=== PATIENT | male | born 1960 | race Caucasian/White ===

== ENCOUNTER → 2019-11-26 | Outpatient (CLI) | payer BC | END | disposition home or self-care (01) | LOC: LABPAT 13:53 | PROVIDERS: ATTEND Orthopaedic Surgery | DX: Z01.812 Encounter for preprocedural laboratory examination (principal) | CPT/HCPCS: 87070 ==

== ENCOUNTER → 2019-11-30 | Outpatient (CLI) | payer BC | END | disposition home or self-care (01) | LOC: LABPAT 07:55 | PROVIDERS: ATTEND Orthopaedic Surgery | DX: Z53.9 Procedure and treatment not carried out, unspecified reason (principal) ==

== ENCOUNTER → 2019-11-30 | Outpatient (CLI) | payer BC ==
--- NOTE | 2019-11-30 08:25 | CT ---
EXAMINATION TYPE: CT chest wo con DATE OF EXAM: 11/30/2019 COMPARISON: None HISTORY: Hemoptysis CT DLP: 277.40 mGycm. Automated Exposure Control for Dose Reduction was Utilized. TECHNIQUE: CT scan of the thorax is performed without IV contrast. FINDINGS: LUNGS: The lungs are grossly clear, there is no concerning parenchymal mass or nodule identified. T here is no pleural effusion or pneumothorax seen. The tracheobronchial tree demonstrates a 1 mm dens ity along the posterior margin the right mainstem bronchus which could be related to retained secreti ons. Linear changes involving the lung bases most typical of atelectasis. Apical pleural-based thicke nasrin noted. Area of subsegmental consolidation along the anterior segment right upper lobe medial mar gin. Mild hyperinflation. MEDIASTINUM: Lack of IV contrast is noted to limit evaluation for mediastinal and especially hilar ad enopathy. There are no definitive greater than 1 cm hilar or mediastinal lymph nodes. No cardiomega ly or pericardial effusion is seen. Single vessel coronary artery calcification. OTHER: Hypertrophic and degenerative changes spine.. IMPRESSION: 1. There is an area of low density along the medial margin anterior segment right upper lobe axial im age 51 measuring 3.9 cm. May lie within the mediastinum rather than the lung. Recommend post contrast imaging to assess for mass. 2. There is a tiny 1 to 2 mm density along the posterior margin the trachea and right mainstem bronch us most likely related to retained secretions could be followed in 3-6 month basis. It is too small t o characterize. 3. Correlate for mild COPD
== END | disposition home or self-care (01) ==
LOC: RADCTMAIN 07:39
PROVIDERS: ATTEND Family Medicine
DX: J98.4 Other disorders of lung (principal)
CPT/HCPCS: 71250

== ENCOUNTER → 2019-12-02 | Outpatient (CLI) | payer BC ==
[2019-12-02 13:16] LABS: Appearance,Urine Clear (Clear); Bilirubin,Urine Negative (Negative); Blood,Urine Negative (Negative); Color,Urine Light Yellow; Glucose,Urine (UA) Negative (Negative); Ketones,Urine Negative (Negative); Leukocyte Esterase,Urine Negative (Negative); Nitrite,Urine Negative (Negative); PH, Urine 6.5 (5.0-8.0); Protein,Urine Negative (Negative); Specific Gravity,Urine 1.004 (1.001-1.035); Urobilinogen,Urine <2.0 mg/dL (<2.0)
== END | disposition home or self-care (01) ==
LOC: LABPAT 12:38
PROVIDERS: ATTEND Orthopaedic Surgery
DX: Z01.818 Encounter for other preprocedural examination (principal); Z01.812 Encounter for preprocedural laboratory examination; M25.551 Pain in right hip
CPT/HCPCS: 81003; 85730; 86850; 86900; 86901

== ENCOUNTER → 2019-12-06 | Outpatient (CLI) | payer BC ==
--- NOTE | 2019-12-06 08:51 | CT ---
EXAMINATION TYPE: CT chest w con DATE OF EXAM: 12/06/2019 COMPARISON: Prior chest CT 6 days ago. HISTORY: Abnormal lung field CT DLP: 262.5 mGycm. Automated Exposure Control for Dose Reduction was Utilized. TECHNIQUE: CT scan of the thorax is performed following with IV Contrast, patient injected with 100 mL of Isovue 300. FINDINGS: LUNGS: Mild to moderate underlying emphysematous change is redemonstrated with stable mild biapical pleural/ parenchymal scarring. Chronic consolidation and/or atelectasis along right heart border is fairly low density could reflect fluid. It is unchanged in size and appearance from prior study measuring rough ly 4.0 x 1.6 cm image 50. I favor mediastinal location and benign pericardial fluid or cyst. Focal pl eural fluid or chronic consolidation/atelectasis less likely. Either way benign etiologies almost cer tain. Stable linear scarring posteriorly in the left lower lobe near diaphragm axial image 55 for ref erence. Dependent density right mainstem bronchus on prior study not clearly seen consistent with res olution of retained secretions. Tracheobronchial tree patent currently. No new consolidation or suspi cious masses. Some new nodular posterior atelectatic changes in the both lower lobes on current study . MEDIASTINUM: There are no greater than 1 cm hilar or mediastinal lymph nodes. No cardiomegaly or pe ricardial effusion is seen. OTHER: Moderate multilevel spurring in the thoracic spine. IMPRESSION: Area of concern on recent CT shows no suspicious enhancement it is low density favoring f luid etiology, strongly suspect mediastinal location and/or benign pericardial cyst. Resolution of ti ny 1 to 2 mm density posterior margin right mainstem bronchus. Background mild to moderate chronic em physematous change without new suspicious acute pulmonary process.
== END | disposition home or self-care (01) ==
LOC: RADCTMAIN 06:50
PROVIDERS: ATTEND Family Medicine
DX: J43.9 Emphysema, unspecified (principal); J98.09 Other diseases of bronchus, not elsewhere classified
CPT/HCPCS: 71260; Q9967

== ENCOUNTER 2019-12-13 11:29 | Day surgery (SDC) | payer BC ==
[2019-12-09 11:54] VITALS: BMI 25.1
[~2019-12-13 11:29] MED LIST: ACETAMINOPHEN TAB 500 MG TAB PO ONE; GABAPENTIN 300 MG CAP PO ONE; MELOXICAM 7.5 MG TAB PO ONE; TRANEXAMIC ACID 1,000 MG in SODIUM CHLORIDE 0.9% 100 ML IVPB ONE
[2019-12-13] MEDS ORDERED: LACTATED RINGERS 1,000 ML IV ONE ×2 (11:59→14:09)
[2019-12-13] MEDS ORDERED: DEXAMETHASONE SOD PHOSPHATE 10 MG/ML 1 ML VIAL IV ONE (12:01)
[2019-12-13] MEDS ORDERED: ONDANSETRON 4 MG/2 ML VIAL IVP ONE (12:01)
[2019-12-13] MEDS ORDERED: PROPOFOL 10 MG/ML 20 ML VIAL IV ONE (13:17)
[2019-12-13] MEDS ORDERED: HEPARIN SODIUM,PORCINE 10,000 UNIT/ML 1 ML VIAL ONE (13:17)
[2019-12-13] MEDS ORDERED: SODIUM CHLORIDE 0.9% IRRIG 1,000 ML BTL IRRIGATION ONE (13:17)
[2019-12-13] MEDS ORDERED: SODIUM CHLORIDE 0.9% 100 ML BAG ONE (13:17)
[2019-12-13] MEDS ORDERED: MIDAZOLAM 2 MG/2 ML VIAL ONE (13:17)
[2019-12-13] MEDS ORDERED: ePHEDrine SULFATE/0.9% NACL/PF 50 MG/5 ML SYRINGE IV ONE (13:17)
[2019-12-13] MEDS ORDERED: fentaNYL (PF) 50 MCG/ML 2 ML AMP ONE (13:17)
[2019-12-13] MEDS ORDERED: TRANEXAMIC ACID 1,000 MG/10 ML VIAL ONE (13:17)
[2019-12-13] MEDS ORDERED: ceFAZolin 3,000 MG in SODIUM CHLORIDE 0.9% IRRIGATIO 3,000 ML IRRIGATION ONE (13:21)
[2019-12-13] MEDS: ROPIVACAINE 246.25 MG, EPINEPHrine 0.5 MG, KETOROLAC 30 MG, cloNIDine HCL/PF 80 MCG, WA... MISCELLANE ONE ×10 (13:46→14:34)
--- NOTE | 2019-12-13 14:52 | XR ---
EXAMINATION TYPE: XR Hip Limited RT, FL guidance operating room DATE OF EXAM: 12/13/2019 CLINICAL HISTORY: Fluoroscopic documentation during right hip arthroplasty. TECHNIQUE: Fluoroscopy. COMPARISON: None. FINDINGS: Fluoroscopic guidance was provided during procedure performed by Dr. Ley. A total of 57 seconds of fluoroscopic time was utilized during the procedure and 2 spot images were acquired dur ing right hip arthroplasty. IMPRESSION: As Above.
--- NOTE | 2019-12-13 14:58 | P.OP ---
Date of Procedure: 12/13/19 Preoperative Diagnosis: Severe osteoarthritis right hip Postoperative Diagnosis: Severe osteoarthritis right hip Procedure(s) Performed: Right total hip arthroplasty with a direct anterior approach Implants: Ruth [employer] nephew Polarstem size 7 standard [employer]hew R3, 3 hole acetabular shell, 56 mm [employer] reflection 6.5 mm cancellus screw, 20 mm 2 [employer] R3, XLPE 20 acetabular liner [employer]hew Oxinium femoral head 36 m, +4 All components were press-fit. The articulation is Oxinium on polyethylene. Anesthesia: spinal Surgeon: George Ley Construction Equipment Mechanic Helper #1: Caridad Martinez Estimated Blood Loss (ml): 400 (130 mL returned with Cell Saver) Pathology: other (Femoral head) Condition: stable Disposition: PACU Indications for Procedure: After failure of conservative treatment we discussed the surgical and nonsurgical treatment options at length. Patient wishes to proceed with a total hip arthroplasty with a direct anterior approach. Complications specific to this procedure were discussed at length, including but not limited to infection, leg length discrepancy, dislocation, and nerve injury. Patient is aware of all these complications and informed consent was obtained Operative Findings: The operative findings are consistent with severe osteoarthritis of the right hip Description of Procedure: Patient was seen and evaluated in the preoperative area, consent was reviewed, and the surgical site was marked with a skin marker. Patient was then brought to the operating room and given prophylactic antibiotics intravenously. 1 g of Tranexamic acid was also given. A spinal anesthetic was administered by the anesthesia department. The patient was then placed on the [place] table with the bony prominences well-padded. The hip area was then prepped and draped in usual sterile fashion. A universal timeout was then performed, which confirmed the patient's name, surgical site, ALLERGIES, and procedure being performed. Next the incision site was located at 1 cm distal and 1 cm lateral to the anterior superior iliac spine. The skin and subcutaneous tissues were sharply incised. Incision was carefully dissected down to the fascia overlying the tensor fascia sonia muscle. This fascia was then incised in line with the incision. Next, using blunt finger dissection, the tensor fascia sonia muscle was dissected off its investing fascia. The muscle was then carefully retracted laterally with a cobra retractor over the lateral neck of the femur. Next, the circumflex vessels were identified and cauterized using the AquaMantis device. The anterior hip capsule was then exposed. The capsule was then opened and an inverted T fashion. Cobra retractors were then placed intracapsularly. The proximal femur was then vis ualized. The femoral neck was then osteotomized appropriate level above the lesser trochanter. Small amount of traction was placed with the [place] table. A small wedge of bone was then removed from the remaining femoral head. Next, using a corkscrew femoral head was easily removed from the acetabulum. On gross visual inspection, the femoral head had complete loss of articular cartilage in multi ple periarticular osteophytes. Attention was then turned to the acetabulum. the acetabulum was exposed and any remaining labrum was excised. Sequential reaming of the acetabulum was performed using fluoroscopic guidance. When the appropriate size was reached, a trial was then placed. The position and fit of the trial was checked with fluoroscopy. The trial was then removed. Then, using fluoroscopic guidance, the final implant was impacted at 20 of anteversion and 40 of abduction, and fully seated in the acetabulum. 2 screws were then placed in the acetabulum. Again fluoroscopy was used to check position of the screws. Next, the liner was then impacted, with a 20 elevated liner located in the anterior superior quadrant. Component locking was confirmed. Attention was then directed to the femur. With the aid of the [place] table, the femur was externally rotated to approximately 130, extended, and abducted under the opposite leg. A side hook was then placed under the proximal femur, and the side hook elevator was used to elevate the proximal femur. Retractors were then placed. A capsular release was performed, as well as a release of the conjoined tendon, which afforded excellent visualization of the proximal femur. Next, a box osteotome was used to lateralize the proximal femur. A sole stitcher hand was then used to locate the femoral canal. Sequential broaching was then performed with appropriate size which afforded excellent fixation in the proximal femur. A trial was then placed with appropriate head and neck, and the hip was gently reduced with the aid of the [place] table. Fluoroscopy was then used to check position of the components, as well as to ensure equal leg lengths. The hip was then gently dislocated and the trials were then removed. Final implants were then impacted and the hip was again reduced. Final fluoroscopic x-rays confirmed that the components were in anatomic position, as well as equal leg lengths. The hip was also taken through range of motion, and found to be stable. The hip was then copiously irrigated with antibiotic solution with pulsatile lavage. The hip was then irrigated with Irrisept solution. The soft tissues were then injected with a ropivacaine solution, which consisted of 246.25 mg of ropivacaine, 0.5 mg of epinephrine, 30 mg of Toradol, 80 g of clonidine, and 48.45 mL of sterile water, for a total of 100 mL of fluid injected. A second dose of 1 g of Tranexamic acid was also given. the fascia was then closed with 2-0 strata fix suture. The subcutaneous tissue was closed with 3-0 Vicryl. The subcuticular tissue was closed with 3-0 strata fix suture. The skin was then closed with Dermabond glue and a sterile silver dressing. The patient was then transferred to the recovery room in stable condi tion. The library media assistant MEHUL Mac was required due to the complexity of surgery, and the need for skilled surgical specialist for positioning, draping, exposure, retraction, and closure of the wound.
[2019-12-13] MEDS ORDERED: NALOXONE 0.4 MG/ML 1 ML VIAL IV PRN ×2 (15:15→15:18)
[2019-12-13] MEDS ORDERED: HYDROcodone/APAP 7.5-325MG 1 EACH TAB PO PRN ×2 (15:18)
[2019-12-13] MEDS ORDERED: MAGNESIUM HYDROXIDE 2,400 MG/10 ML CUP PO PRN (15:18)
[2019-12-13] MEDS ORDERED: HYDROmorphone 1 MG/ML 1 ML SYRINGE IVP PRN (15:18)
[2019-12-13] MEDS ORDERED: ACETAMINOPHEN TAB 325 MG TAB PO PRN (15:18)
[2019-12-13] MEDS ORDERED: HYDROmorphone 0.5 MG/0.5 ML SYRINGE IVP PRN ×2 (15:18)
[2019-12-13] MEDS ORDERED: ONDANSETRON 4 MG/2 ML VIAL IVP PRN (15:18)
[2019-12-13] MEDS: LACTATED RINGERS 1,000 ML IV SCH ×2 (15:34→22:06)
--- NOTE | 2019-12-13 15:51 | XR ---
EXAMINATION TYPE: XR Hip Limited RT DATE OF EXAM: 12/13/2019 CLINICAL HISTORY: Right hip pain and osteoarthritis. TECHNIQUE: Single AP portable view of right hip is obtained immediately postoperatively. COMPARISON: None. FINDINGS: Metallic hardware from right hip arthroplasty is seen and appears satisfactory in alignment and position. There is evidence of recent surgery with subcutaneous gas noted laterally. IMPRESSION: Metallic hardware from right hip arthroplasty is satisfactory in position.
[2019-12-13] MEDS: ASPIRIN 325 MG TAB PO SCH (19:58)
[2019-12-13] MEDS ORDERED: SENNOSIDES-DOCUSATE SODIUM 1 EACH TAB PO SCH (21:00)
[2019-12-14 07:31] LABS: Basophils # (A) 0.1 k/uL (0-0.2); Basophils % (A) 1 %; Eosinophils # (A) 0.1 k/uL (0-0.7); Eosinophils % (A) 1 %; HCT 36.6 % (39.0-53.0); Lymphocytes # (A) 1.5 k/uL (1.0-4.8); Lymphocytes % (A) 15 %; MCH 31.3 pg (25.0-35.0); MCHC 32.3 g/dL (31.0-37.0); MCV 96.6 fL (80.0-100.0); Mean Platelet Volume 7.5; Monocytes # (A) 0.7 k/uL (0-1.0); Monocytes % (A) 6 %; Neutrophils # (A) 7.8 k/uL (1.3-7.7); Neutrophils % (A) 76 %; Platelet Count 156 k/uL (150-450); RBC 3.79 m/uL (4.30-5.90); RDW 12.1 % (11.5-15.5); WBC 10.3 k/uL (3.8-10.6)
[2019-12-14 07:39] LABS: HGB 11.8 gm/dL (13.0-17.5)
[2019-12-14 07:51] VITALS: BP 113/64; PULSE 84; RESP 15; TEMP 98.1
[2019-12-14] MEDS: ASPIRIN 325 MG TAB PO SCH (08:47)
[2019-12-14] MEDS ORDERED: MELOXICAM 7.5 MG TAB PO SCH (09:00)
--- NOTE | 2019-12-14 11:31 | P.DS ---
Providers Expected date of discharge: 12/14/19 Attending physician: George Ley Consults: 12/13/19 15:18 Consult Physician Routine Consulting Provider: Donovan Burnette Consult Reason/Comments: Medical management Do you want consulting provider notified?: Yes Primary care physician: Donovan Burnette - Discharge Diagnosis(es) (1) Osteoarthritis of right hip Current Visit: Yes Status: Acute (2) Status post total hip replacement, right Current Visit: Yes Status: Acute Hospital Course: This is a 59-year-old male with known history of degenerative arthritis of the right hip. The patient presents for evaluation. After discussion and consideration patient elects to proceed with total hip arthroplasty. The patient is seen preoperatively by his primary care physician and cleared for surgery. Patient is [facility] to [facility] on 12/13/2019 for total hip arthroplasty. The procedures performed without complication or sequelae. The patient is doing well postoperatively. Labs and vital signs are stable on day of discharge. On day of discharge patient's hip incision is healing well. There is minimal erythema. There is no drainage noted at this time. There is minimal soft tissue swelling to the hip and thigh. Patient has full foot and ankle motion without difficulty or pain. Neurovascular status to the right lower extremity is intact. Patient is discharged to home in good condition. Patient Condition at Discharge: Good Plan - Discharge Summary Discharge Rx Participant: No New Discharge Prescriptions: New Aspirin 325 mg PO BID #60 tab Meloxicam [Mobic] 1 - 2 tab PO DAILY PRN #30 tab PRN Reason: Pain HYDROcodone/APAP 7.5-325MG [H[place]ett 7.5-325] 1 - 2 tab PO Q4-6H PRN #50 tab PRN Reason: Pain Sennosides-Docusate Sodium [Senokot-S] 1 tab PO BID #60 tablet No Action Nicotine Polacrilex [Nicotine Gum] 4 mg BUCCAL RT-Q2H Discharge Medication List Nicotine Polacrilex [Nicotine Gum] 4 mg BUCCAL RT-Q2H 12/13/19 [History] Aspirin 325 mg PO BID #60 tab 12/14/19 [Rx] HYDROcodone/APAP 7.5-325MG [[place]ett 7.5-325] 1 - 2 tab PO Q4-6H PRN #50 tab 12/14/19 [Rx] Meloxicam [Mobic] 1 - 2 tab PO DAILY PRN #30 tab 12/14/19 [Rx] Sennosides-Docusate Sodium [Senokot-S] 1 tab PO BID #60 tablet 12/14/19 [Rx] Follow up Appointment(s)/Referral(s): George Ley DO [Doctor of Osteopathic Medicine] - 2 Weeks Activity/Diet/Wound Care/Special Instructions: May bear wt as tolerated w walker. May shower w dressing intact. Leave dressing intact for 10 days. Patient given Rx to start outpatient Physical Therapy. Patient to call and set up first visit with their preferred outpatient Physical Therapist, with an appointment by . Discharge Disposition: HOME SELF-CARE
[2019-12-14] MEDS: LACTATED RINGERS 1,000 ML IV SCH (12:32)
[2019-12-14] MEDS ORDERED: NICOTINE POLACRILEX 2 MG GUM BUCCAL PRN (13:00)
[2019-12-14] MEDS ORDERED: TEMAZEPAM 15 MG CAP PO PRN (22:00)
== END 2019-12-14 13:30 | disposition home or self-care (01) ==
LOC: OR 11:29 → EDSTATUS 15:00 → 4SSUR 15:26 → OR 12-14 13:30
PROVIDERS: ATTEND Orthopaedic Surgery
DX: M16.11 Unilateral primary osteoarthritis, right hip (principal); F17.210 Nicotine dependence, cigarettes, uncomplicated; Z82.49 Family history of ischemic heart disease and other diseases of the circulatory system; Z83.3 Family history of diabetes mellitus; Z79.82 Long term (current) use of aspirin; Z79.899 Other long term (current) drug therapy
CPT/HCPCS: 97161; 86891; 85025; 88300; 73501; 27130; P9022; C1776; J2250; J0171; J1644; J1100; J0690 ×2; J2405; J3010; J1885; J2795; J2704; J0735; 86850; 86900; 86901

== ENCOUNTER 2020-04-12 20:40 | Emergency (ER) | payer OTHER, BC ==
[2020-04-12 21:15] VITALS: BP 100/55; PULSE 66; RESP 20; TEMP 98.4
[2020-04-12 21:15] LABS: Glucose,Whole Blood 115 mg/dL (75-99)
[2020-04-12 21:17] LABS: Basophils # (A) 0.1 k/uL (0-0.2); Basophils % (A) 1 %; Eosinophils # (A) 0.3 k/uL (0-0.7); Eosinophils % (A) 3 %; HCT 49.7 % (39.0-53.0); Lymphocytes % (A) 37 %; MCH 31.9 pg (25.0-35.0); MCHC 32.3 g/dL (31.0-37.0); MCV 98.8 fL (80.0-100.0); Mean Platelet Volume 7.3; Monocytes # (A) 0.4 k/uL (0-1.0); Monocytes % (A) 4 %; Neutrophils # (A) 5.7 k/uL (1.3-7.7); Neutrophils % (A) 54 %; Platelet Count 228 k/uL (150-450); RBC 5.03 m/uL (4.30-5.90); RDW 12.7 % (11.5-15.5); WBC 10.6 k/uL (3.8-10.6)
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
[2020-04-12] MEDS: HYDROmorphone 0.5 MG/0.5 ML SYRINGE IVP PRN ×2 (21:22→23:15)
[2020-04-12 21:23] LABS: Creatine Kinase 158 U/L (55-170)
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
[2020-04-12 21:25] LABS: ALT 175 U/L (4-49); AST 254 U/L (17-59); African American GFR (CKD) >90 (>60 ml/min/1.73 sqM); Albumin 4.1 g/dL (3.5-5.0); Alcohol <10 mg/dL; Alkaline Phosphatase 70 U/L (38-126); Amylase 47 U/L (30-110); Anion Gap 8 mmol/L; Blood Urea Nitrogen 14 mg/dL (9-20); Calcium 9.2 mg/dL (8.4-10.2); Carbon Dioxide 26 mmol/L (22-30); Chloride 105 mmol/L (98-107); Glucose 118 mg/dL (74-99); Non-African American GFR(CKD) >90 (>60 ml/min/1.73 sqM); Potassium 3.9 mmol/L (3.5-5.1); Sodium 139 mmol/L (137-145); Total Bilirubin 0.3 mg/dL (0.2-1.3); Total Protein 6.8 g/dL (6.3-8.2)
[2020-04-12 21:33] LABS: Partial Thromboplastin Time 20.8 sec (22.0-30.0); Prothrombin Time 10.5 sec (9.0-12.0)
[2020-04-12 21:35] LABS: Creatine Kinase MB 1.9 ng/mL (0.0-2.4); Troponin I <0.012 ng/mL (0.000-0.034)
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
[2020-04-12] MEDS ORDERED: SODIUM CHLORIDE 0.9% 1,000 ML IV ONE (22:04)
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
--- NOTE | 2020-04-12 22:36 | XR ---
EXAMINATION TYPE: XR knee complete LT DATE OF EXAM: 04/12/2020 COMPARISON: NONE HISTORY: Knee pain TECHNIQUE: 3 views FINDINGS: There is old lateral plate and transverse screw fixing distal femoral shaft fracture. There is some calcification at the tibial tubercle consistent with old osteochondrosis. There is some spur ring of the femoral and tibial condyles. I see no definite fracture of the proximal tibia. There appe ars to be nondisplaced complex fracture of the head of the fibula. IMPRESSION: Nondisplaced fracture of the head of the fibula. No definite acute fracture of the distal femur and proximal tibia. Osteoarthritic changes.
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
[2020-04-13] MEDS ORDERED: HYDROmorphone 0.5 MG/0.5 ML SYRINGE IVP STA (01:23)
== END 2020-04-13 01:40 | disposition other institution (70) ==
LOC: EC 20:40
DX: S82.832A Other fracture of upper and lower end of left fibula, initial encounter for closed fracture (principal); S82.122A Displaced fracture of lateral condyle of left tibia, initial encounter for closed fracture; S52.92XA Unspecified fracture of left forearm, initial encounter for closed fracture; S52.202A Unspecified fracture of shaft of left ulna, initial encounter for closed fracture; S22.32XA Fracture of one rib, left side, initial encounter for closed fracture; R74.0 Nonspecific elevation of levels of transaminase and lactic acid dehydrogenase [LDH]; F17.200 Nicotine dependence, unspecified, uncomplicated; V29.49XA Motorcycle driver injured in collision with other motor vehicles in traffic accident, initial encounter; Y92.410 Unspecified street and highway as the place of occurrence of the external cause
CPT/HCPCS: 36415; 93005; 86900; 86901; 80053; 82150; 82550; 82553; 83605; 83690; 84484; 85025; 85610; 85730; 86850; 80320; 72170; 73552; 73090; 73590; 73562; 71045; 72125; 70450; 71260; 74177; 99285; 29125; 29505; 96374; 96376; 96361 ×3; J1170 ×2; Q9967

== ENCOUNTER → 2020-07-03 | Outpatient (CLI) | payer OTHER, BC ==
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
== END | disposition home or self-care (01) ==
LOC: RADXRMAIN 10:35
PROVIDERS: ATTEND Orthopaedic Surgery Orthopaedic Trauma
DX: S52.592D Other fractures of lower end of left radius, subsequent encounter for closed fracture with routine healing (principal); S52.202D Unspecified fracture of shaft of left ulna, subsequent encounter for closed fracture with routine healing

== ENCOUNTER → 2020-08-15 | Day surgery (SDC) | payer BC, OTHER ==
[2020-08-11 10:56] VITALS: BMI 25.1
[~2020-08-15] MED LIST changes: -ACETAMINOPHEN TAB 500 MG TAB PO ONE; -GABAPENTIN 300 MG CAP PO ONE; +LACTATED RINGERS 1,000 ML IV SCH; +LIDOCAINE 1% (10MG/ML) FOR IV START INTRADERMA ONE; -MELOXICAM 7.5 MG TAB PO ONE; +PROPOFOL 10 MG/ML 20 ML VIAL IV ONE; -TRANEXAMIC ACID 1,000 MG in SODIUM CHLORIDE 0.9% 100 ML IVPB ONE
[2020-08-15 08:44] VITALS: RESP 16; TEMP 97.1
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
--- NOTE | 2020-08-15 09:26 | P.PCN ---
Date of Procedure: 08/15/20 Procedure(s) Performed: PREOPERATIVE DIAGNOSIS: Colon cancer screening POSTOPERATIVE DIAGNOSIS: Normal exam PROCEDURE: Colonoscopy ANESTHESIA: MAC SURGEON: Christopher Martinez M.D. SPECIMENS: None ENDOSCOPIC PROCEDURE: The patient was placed on the endoscopy table in the left decubitus position. The Olympus colonoscope was inserted into the anus and passed under direct visualization to the base of the cecum. The appendiceal orifice was visualized. From that point the scope was slowly withdrawn inspecti ng all surfaces carefully. There were no neoplastic inflammatory or polypoid lesions throughout the cecum, ascending, transverse, descending, sigmoid and rectum. There was no visible diverticulosis noted. Digital rectal examination was normal. The patient was taken to the recovery room in stable condition per anesthesia guidelines. RECOMMENDATIONS: Resume diet. Follow colonoscopy in 5 years given suspected family history of colon cancer.
[2020-08-15 09:32] VITALS: PULSE 61
[2020-08-15 09:51] VITALS: BP 114/74
== END ==
LOC: ORWHC2ENDO 08:19
PROVIDERS: ATTEND Surgery
DX: Z12.11 Encounter for screening for malignant neoplasm of colon (principal); Z86.010 Personal history of colon polyps; F17.210 Nicotine dependence, cigarettes, uncomplicated; Z98.890 Other specified postprocedural states; Z96.641 Presence of right artificial hip joint; Z79.82 Long term (current) use of aspirin; Z80.0 Family history of malignant neoplasm of digestive organs; Z80.3 Family history of malignant neoplasm of breast; Z80.42 Family history of malignant neoplasm of prostate
CPT/HCPCS: J2704; G0105; 45378

== ENCOUNTER → 2021-02-08 | Outpatient (CLI) | payer BC ==
--- NOTE | 2021-02-08 12:31 | XR ---
EXAMINATION TYPE: XR chest 2V DATE OF EXAM: 02/08/2021 COMPARISON: 04/12/2020 INDICATION: Chest wall pain TECHNIQUE: Frontal and lateral views of the chest are obtained. FINDINGS: The heart size is normal. The pulmonary vasculature is normal. The lungs are clear. IMPRESSION: 1. No acute pulmonary process.
== END | disposition home or self-care (01) ==
LOC: RADXRMAIN 12:11
PROVIDERS: ATTEND Family Medicine
DX: R07.89 Other chest pain (principal)
CPT/HCPCS: 71046

== ENCOUNTER → 2021-03-08 | Outpatient (CLI) | payer BC ==
--- NOTE | 2021-03-08 12:17 | ECHOF ---
Referral Reason:R07.9 Chest Pain MEASUREMENTS -------- HEIGHT: 180.3 cm WEIGHT: 81.6 kg BP: 130/72 RVIDd: 3.3 cm (< 3.3) IVSd: 1.2 cm (0.6 - 1.1) LVIDd: 4.8 cm (3.9 - 5.3) LVPWd: 1.1 cm (0.6 - 1.1) IVSs: 1.8 cm LVIDs: 3.2 cm LVPWs: 1.7 cm LA Diam: 3.3 cm (2.7 - 3.8) LAESV Index (A-L): 22.64 ml/m Ao Diam: 3.4 cm (2.0 - 3.7) AV Cusp: 2.6 cm (1.5 - 2.6) MV EXCURSION: 18.048 mm (> 18.000) MV EF SLOPE: 141 mm/s (70 - 150) EPSS: 0.4 cm MV E Delgado: 0.76 m/s MV DecT: 264 ms MV A Delgado: 0.57 m/s MV E/A Ratio: 1.32 FINDINGS -------- Sinus rhythm. This was a technically adequate study. The left ventricular size is normal. There is borderline concentric left ventricular hypertrophy. Overall left ventricular systolic function is normal with, an EF between 55 - 60 %. The diastolic filling pattern is normal for the age of the patient 8.65. The right ventricle is mildly enlarged. Normal LA size by volume 22+/-6 ml/m2. The right atrial size is normal. Interatrial and interventricular septum intact. The aortic valve is trileaflet and appears structurally normal. Trace amount of aortic regurgitatio n. The mitral valve is normal. Mild mitral regurgitation is present. The tricuspid valve appears structurally normal. Mild tricuspid regurgitation present. Trace/mild (physiologic) pulmonic regurgitation. The aortic root size is normal. Normal inferior vena cava with normal inspiratory collapse consistent with estimated right atrial pre ssure of 5 mmHg. There is no pericardial effusion. CONCLUSIONS -------- 1. There is borderline concentric left ventricular hypertrophy. 2. Overall left ventricular systolic function is normal with, an EF between 55 - 60 %. 3. The right ventricle is mildly enlarged. 4. Normal LA size by volume 22+/-6 ml/m2. 5. Trace amount of aortic regurgitation. 6. Mild mitral regurgitation is present. 7. Mild tricuspid regurgitation present. 8. Trace/mild (physiologic) pulmonic regurgitation. 9. There is no pericardial effusion. PERFORMANCE ANALYST: Jovana Wiseman RDCS
--- NOTE | 2021-03-08 13:25 | EST ---
EXERCISE STRESS AGE: 60 SEX: Male HT: 5'11" WT: 180 PROTOCOL: Kentrell STAGE: IV DURATION OF EXERCISE: 12 minutes HEART RATE REST: 65 BLOOD PRESSURE REST: 94/65 MAXIMUM HEART RATE ACHIEVED: 166 MAXIMUM BLOOD PRESSURE: 217/55 85% MPHR: 135 100% MPHR: 159 METS: 12.3 INDICATIONS: Chest pain. CLINICAL INFORMATION: Baseline rhythm is sinus mechanism, rate of 65, normal axis and intervals, normal electrocardiogram. Baseline blood pressure 94/65 mmHg. Patient exercised on Kentrell protocol for 12 minutes reaching peak rate 166 beats per minute which is equal to 100% maximum predicted heart rate. Peak blood pressure 217/55 mmHg. Test was terminated secondary to fatigue. There was no chest pain. Electrocardiograph monitoring revealed occasional PVCs. There was a [address]-segment depression at peak exercise that resolved rapidly in recovery. CONCLUSION: 1. Good exercise tolerance with occasional PVCs. 2. Borderline positive electrocardiograph stress testing with [address]-segment depression at peak exercise. 3. If clinically indicated, an imaging stress test will be helpful. MMODL / IJN: [id number] /
== END | disposition home or self-care (01) ==
LOC: RADECHMAIN 08:21
PROVIDERS: ATTEND Family Medicine
DX: I08.3 Combined rheumatic disorders of mitral, aortic and tricuspid valves (principal)
CPT/HCPCS: 93017; 93306

== ENCOUNTER 2021-11-07 10:45 | Inpatient (IN) | payer BC ==
[2021-11-07] MEDS ORDERED: MORPHINE SULFATE 4 MG/ML SYRINGE IM STA (11:48)
[2021-11-07] MEDS ORDERED: HYDROmorphone 0.5 MG/0.5 ML SYRINGE IM STA (11:58)
--- NOTE | 2021-11-07 12:37 | XR ---
EXAMINATION TYPE: XR chest 1V DATE OF EXAM: 11/07/2021 COMPARISON: 02/08/2021 INDICATION: Pain TECHNIQUE: Single frontal view of the chest is obtained. FINDINGS: The heart size is normal. The pulmonary vasculature is normal. The lungs are clear. Right costophrenic angles excluded from [id number]. IMPRESSION: 1. No acute pulmonary process.
--- NOTE | 2021-11-07 12:38 | XR ---
EXAMINATION TYPE: XR Hip LT and AP Pelvis, XR femur LT DATE OF EXAM: 11/07/2021 CLINICAL HISTORY: pain TECHNIQUE: AP and frogleg views of the left hip are obtained. Single view of the left femur is also submitted. COMPARISON: None. FINDINGS: There is virtually nondisplaced intratrochanteric fracture noted of the left hip. The joint space appears within normal limits. The overlying soft tissue appears unremarkable. Plate fixation distal left femur with 8 transfixing screws noted. Screws #2 and 3 are fractured. IMPRESSION: 1. There is virtually nondisplaced intratrochanteric fracture noted of the left hip.
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
[2021-11-07 13:35] LABS: Basophils % (A) 0 %; Eosinophils # (A) 0.1 k/uL (0-0.7); Eosinophils % (A) 1 %; HCT 43.7 % (39.0-53.0); HGB 14.7 gm/dL (13.0-17.5); Lymphocytes # (A) 1.4 k/uL (1.0-4.8); Lymphocytes % (A) 16 %; MCH 32.9 pg (25.0-35.0); MCHC 33.7 g/dL (31.0-37.0); MCV 97.7 fL (80.0-100.0); Mean Platelet Volume 7.3; Monocytes # (A) 0.5 k/uL (0-1.0); Monocytes % (A) 6 %; Neutrophils # (A) 6.6 k/uL (1.3-7.7); Neutrophils % (A) 75 %; Platelet Count 194 k/uL (150-450); RBC 4.47 m/uL (4.30-5.90); RDW 12.6 % (11.5-15.5); WBC 8.8 k/uL (3.8-10.6)
[2021-11-07 13:42] LABS: Partial Thromboplastin Time 23.2 sec (22.0-30.0); Prothrombin Time 10.4 sec (9.0-12.0)
[2021-11-07] MEDS ORDERED: NALOXONE 0.4 MG/ML 1 ML VIAL IV PRN (13:46)
[2021-11-07] MEDS ORDERED: HYDROmorphone 0.5 MG/0.5 ML SYRINGE IVP PRN ×2 (13:46→18:30)
[2021-11-07] MEDS ORDERED: ONDANSETRON 4 MG/2 ML VIAL IVP PRN (13:46)
[2021-11-07 14:16] LABS: ALT 19 U/L (4-49); African American GFR (CKD) >90 (>60 ml/min/1.73 sqM); Anion Gap 7 mmol/L; Blood Urea Nitrogen 14 mg/dL (9-20); Carbon Dioxide 25 mmol/L (22-30); Chloride 105 mmol/L (98-107); Glucose 107 mg/dL (74-99); Non-African American GFR(CKD) >90 (>60 ml/min/1.73 sqM); Sodium 137 mmol/L (137-145); Total Bilirubin 1.1 mg/dL (0.2-1.3); Total Protein 7.1 g/dL (6.3-8.2)
[2021-11-07] MEDS: SODIUM CHLORIDE 0.9% 1,000 ML IV SCH (14:37)
[2021-11-07] MEDS ORDERED: ALPRAZolam 0.25 MG TAB PO PRN (14:40)
[2021-11-07 14:53] LABS: Potassium 5.4 mmol/L (3.5-5.1)
[2021-11-07 14:54] LABS: AST 37 U/L (17-59); Alkaline Phosphatase 64 U/L (38-126)
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
[2021-11-07] MEDS ORDERED: IV FLUID CONTINUATION 1,000 ML IV ONE (15:49)
[2021-11-07] MEDS ORDERED: fentaNYL (PF) 50 MCG/ML 2 ML AMP ONE (16:40)
[2021-11-07] MEDS ORDERED: PROPOFOL 10 MG/ML 20 ML VIAL IV ONE (16:40)
[2021-11-07] MEDS ORDERED: MIDAZOLAM 2 MG/2 ML VIAL ONE (16:40)
[2021-11-07] MEDS ORDERED: KETAMINE 10 MG/ML 20 ML VIAL ONE (16:40)
[2021-11-07] MEDS ORDERED: HYDROmorphone (PF) 1 MG/ML ONE (16:40)
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
[2021-11-07] MEDS ORDERED: ceFAZolin 1,000 MG in SODIUM CHLORIDE 0.9% 1,000 ML IRRIGATION ONE (17:54)
[2021-11-07] MEDS ORDERED: hydrOXYzine pamoate 25 MG CAP PO PRN (18:30)
[2021-11-07] MEDS ORDERED: HYDROmorphone 1 MG/ML 1 ML SYRINGE IVP PRN (18:30)
[2021-11-07] MEDS ORDERED: HYDROcodone/APAP 5-325MG 1 EACH TAB PO PRN (18:30)
[2021-11-07] MEDS ORDERED: HYDROmorphone 0.2 MG/1 ML SYRINGE IVP PRN (18:30)
[2021-11-07] MEDS: HYDROmorphone 1 MG/ML 1 ML SYRINGE IVP ONE ×4 (18:35→19:07)
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
[2021-11-07] MEDS: LACTATED RINGERS 1,000 ML IV SCH (20:30)
[2021-11-07] MEDS: ASPIRIN 81 MG PO SCH (20:45)
[2021-11-07] MEDS: HYDROcodone/APAP 5-325MG 1 EACH TAB PO PRN (20:45)
[2021-11-07] MEDS ORDERED: SENNOSIDES-DOCUSATE SODIUM 1 EACH TAB PO SCH (21:00)
[2021-11-07 21:19] LABS: Basophils # (A) 0.1 k/uL (0-0.2); Basophils % (A) 1 %; Eosinophils # (A) 0.2 k/uL (0-0.7); Eosinophils % (A) 1 %; HCT 43.4 % (39.0-53.0); Lymphocytes # (A) 2.2 k/uL (1.0-4.8); Lymphocytes % (A) 19 %; MCH 31.9 pg (25.0-35.0); MCHC 32.2 g/dL (31.0-37.0); Mean Platelet Volume 7.2; Monocytes # (A) 0.7 k/uL (0-1.0); Monocytes % (A) 7 %; Neutrophils % (A) 71 %; Platelet Count 180 k/uL (150-450); RBC 4.39 m/uL (4.30-5.90); RDW 11.9 % (11.5-15.5); WBC 11.2 k/uL (3.8-10.6)
[2021-11-08] MEDS: HYDROcodone/APAP 5-325MG 1 EACH TAB PO PRN (02:30)
[2021-11-08 02:46] VITALS: RESP 17
[2021-11-08] MEDS: SODIUM CHLORIDE 0.9% 1,000 ML IV SCH (05:35)
[2021-11-08] MEDS: LACTATED RINGERS 1,000 ML IV SCH (05:43)
[2021-11-08] MEDS: ASPIRIN 81 MG PO SCH (07:19)
[2021-11-08] MEDS ORDERED: PANTOPRAZOLE 40 MG TABLET PO SCH (07:30)
[2021-11-08 07:44] VITALS: BP 112/58; PULSE 80
--- NOTE | 2021-11-08 08:06 | XR ---
Fluoroscopy History: ORIF left hip ORIF LEFT HIP. DR. REMY. 1 MIN 41 SECONDS FL TIME.
[2021-11-08] MEDS ORDERED: CYCLOBENZAPRINE 5 MG TAB PO PRN (08:12)
[2021-11-08] MEDS ORDERED: ACETAMINOPHEN TAB 325 MG TAB PO PRN (09:12)
[2021-11-08 14:38] VITALS: TEMP 98.8
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
== END 2021-11-08 12:40 | disposition home health service (06) | DRG 482 ==
LOC: EC 10:45 → 4SSUR 13:47
PROVIDERS: ADMIT Orthopaedic Surgery; ATTEND Orthopaedic Surgery
PROC: 8E0YXBF Computer Assisted Procedure of Lower Extremity, With Fluoroscopy (ICD-10-PCS; 2021-11-07)
PROC: 0QS736Z Reposition Left Upper Femur with Intramedullary Internal Fixation Device, Percutaneous Approach (ICD-10-PCS; principal; 2021-11-07 11:30)
DX: S72.145A Nondisplaced intertrochanteric fracture of left femur, initial encounter for closed fracture (principal); E87.5 Hyperkalemia; F17.210 Nicotine dependence, cigarettes, uncomplicated; W00.0XXA Fall on same level due to ice and snow, initial encounter; Z79.82 Long term (current) use of aspirin; Z87.19 Personal history of other diseases of the digestive system; Z80.3 Family history of malignant neoplasm of breast; Z80.42 Family history of malignant neoplasm of prostate; Z86.010 Personal history of colon polyps; Z96.641 Presence of right artificial hip joint
CPT/HCPCS: 36415; 71045; 73501; 73502; 80053; 82306; 85025; 85610; 85730; 93005; 96372; 99285

== ENCOUNTER → 2024-03-17 | Outpatient (CLI) | payer BC ==
--- NOTE | 2024-03-17 10:17 | US ---
EXAMINATION TYPE: US carotid duplex BILAT DATE OF EXAM: 03/17/2024 COMPARISON: NONE CLINICAL INDICATION: Male, 63 years old with history of I65.23 CAROTID STENOSIS; No HTN. TECHNIQUE: Carotid duplex ultrasound examination. Indirect Doppler criteria was utilized. FINDINGS: EXAM MEASUREMENTS: RIGHT: Peak Systolic Velocity (PSV) cm/sec ----- Right CCA: 112.0 ----- Right ICA: 138.0 ----- Right ECA: 118.0 ICA/CCA ratio: 1.2 RIGHT: End Diastole cm/sec ----- Right CCA: 16.8 ----- Right ICA: 23.8 ----- Right ECA: 9.8 LEFT: Peak Systolic Velocity (PSV) cm/sec ----- Left CCA: 131.0 ----- Left ICA: 115.0 ----- Left ECA: 99.2 ICA/CCA ratio: 0.9 LEFT: End Diastole cm/sec ----- Left CCA: 27.9 ----- Left ICA: 23.0 ----- Left ECA: 12.3 VERTEBRALS (direction of flow): Right Vertebral: Antegrade Left Vertebral: Antegrade Rhythm: Normal PERSONAL FINANCIAL ADVISOR NOTES: Mild Plaque bilateral bulbs and right CCA. Slight left elevated velocities. IMPRESSION: No hemodynamically significant stenosis within the visualized bilateral carotid arterial systems. Criteria for Assigning % of Stenosis / Diameter reduction (Estimation based on the indirect measurements of the internal carotid artery velocities (ICA PSV). 1. Normal (no stenosis)=ICA PSV < 125 cm/s: ratio < 2.0: ICA EDV<40 cm/s. 2. Less than 50% stenosis=ICA PSV < 125 cm/s: ratio < 2.0: ICA EDV<40 cm/s. 3. 50 to 69% stenosis=ICA PSV of 125 to 230 cm/s: ration 2.0 ? 4.0: ICA EDV 40-100 cm/s. 4. Greater than 70% stenosis to near occlusion= ICA PSV > 230 cm/s: ratio > 4.0: ICA EDV > 100 cm/s. 5. Near occlusion= ICA PSV velocities may be low or undetectable: variable ratio and ICA EDV. 6. Total occlusion=unable to detect flow.
--- NOTE | 2024-03-17 10:37 | US ---
EXAMINATION TYPE: US arterial LE single level DATE OF EXAM: 03/17/2024 10:21 AM CLINICAL INDICATION: Male, 63 years old with history of I73.9 PAD; Risk factors, no symptoms History of: Smoker: Current Smoker Hypertension: No Diabetic: No Hyperlipidemia: Yes TIA/CVA: No Previous Vascular Surgery: No CAD: No MO: No Vascular Ulcers: No Claudication: No Gangrene: No Doppler Waveforms: Right: Multiphasic, monophasic waveform within the digit and dorsalis pedis Left: Multiphasic, monophasic waveform within the digit Right Brachial Pressure: 103 Left Brachial Pressure: 107 Ankle-Brachial Indices: Right: 1.3 Left: 1.1 (Vessel hardening > 1.4; Normal 0.9 - 1.4, Moderate 0.7 - 0.9, Severe 0.5-0.7) IMPRESSION: Normal ankle-brachial indices bilaterally.
--- NOTE | 2024-03-17 15:52 | BD ---
EXAMINATION TYPE: Axial Bone Density DATE OF EXAM: 03/17/2024 CLINICAL HISTORY: 63 years old Male. ICD-10 CODE: Z13.820 OSTEOPOROSIS Height: 69.5in Weight: 174lb FRAX RISK QUESTIONS: History of Fracture in Adulthood: yes, multiple Secondary Osteoporosis: Current Tobacco Use: yes RISK FACTORS HISTORY OF: Hip Fracture (Right/Left): left When: 2020 History of Wrist Fracture: left When: about 2019 Surgery to Spine/Hip(right/left)/Wrist (right/left): Left hip ORIF, RTHA, Left wrist with hardware When: [id number] MEDICATIONS: EXAM MEASUREMENTS: Bone mineral densitometry was performed using the [employer] System. Bone mineral density as measured about the Lumbar spine is: ----- L1-L4(G/cm2): 1.197 T Score Values are as follows: ----- L1: 0.5 ----- L2: -0.3 ----- L3: -0.1 ----- L4: 0.3 ----- L1-L4: 0.1 Z Score Values are as follows: ----- L1: 0.7 ----- L2: -0.3 ----- L3: -0.1 ----- L4: 0.4 ----- L1-L4: 0.2 First dexa at [facility] Bone mineral density about the R Wrist (g/cm2): 0.640 T Score values are as follows: -----Dist. R+U: -1.8 -----Prox. R+U: -1.5 -----Radius total: -1.7 Z Score values are as follows: -----Dist. R+U: -1.3 -----Prox. R+U: -0.9 -----Radius total: -1.1 First dexa at [facility] FRAX%s: No frax, unable to scan hips IMPRESSION: Osteopenia (T Score between -2.5 and -1). There is slightly increased risk of fracture and the patient may be considered for treatment. Re-Screen 2-5 years. NOTE: T-SCORE=SD OF THE YOUNG ADULT MEAN.
== END | disposition home or self-care (01) ==
LOC: RADBDWWP 09:13
PROVIDERS: ATTEND Internal Medicine
DX: Z12.2 Encounter for screening for malignant neoplasm of respiratory organs (principal); Z13.820 Encounter for screening for osteoporosis; M85.841 Other specified disorders of bone density and structure, right hand; J44.9 Chronic obstructive pulmonary disease, unspecified; I65.23 Occlusion and stenosis of bilateral carotid arteries; I73.9 Peripheral vascular disease, unspecified; F17.210 Nicotine dependence, cigarettes, uncomplicated
CPT/HCPCS: 71271; 77080; 93880; 93922

== ENCOUNTER → 2024-04-20 | Outpatient (CLI) | payer BC | LOC: CPPFTMAIN 13:00 | PROVIDERS: ATTEND Internal Medicine | DX: J44.9 Chronic obstructive pulmonary disease, unspecified (principal); I65.23 Occlusion and stenosis of bilateral carotid arteries; I73.9 Peripheral vascular disease, unspecified; F17.200 Nicotine dependence, unspecified, uncomplicated | CPT/HCPCS: 94060; 94726; 94729 ==